=== PATIENT | female | born 1985 | race Caucasian/White ===

== ENCOUNTER 2019-02-15 10:58 | Emergency (ER) | payer SELFPAY ==
[2019-02-15] MEDS ORDERED: HYDROCODONE/APAP 7.5/325 MG TAB ONE (13:15)
[2019-02-15 13:57] LABS: Urine Specific Gravity 1.015 (1.005-1.030)
[2019-02-15 13:57] LABS: Urine Blood TRACE (NEG); Urine Glucose NEGATIVE (NEG); Urine Protein NEGATIVE (NEG); Urine Specific Gravity 1.015 (1.005-1.030)
--- NOTE | 2019-02-15 17:59 | ER ---
Nurse's Notes [facility] Name: Marjan Prescott Age: 33 yrs Sex: Female : 1985 Arrival Date: 02/15/2019 Time: 11:00 Bed 26 Private MD: Diagnosis: Sciatica Presentation: 02/15 11:38 Presenting complaint: Patient states: "I came in Tuesday because my back had been aj1 hurting. They said it was my sciatic nerve. Now the pain is in both of my legs and it goes all the way up to where my bra is." States that she picked up her cousin's 2 year old and turned wrong and she thinks that that could be what started the pain. Transition of care: patient was not received from another setting of care. Onset of symptoms was January 2019. Risk Assessment: Do you want to hurt yourself or someone else? Patient reports no desire to harm self or others. Initial Sepsis Screen: Does the patient meet any 2 criteria? No. Patient's initial sepsis screen is negative. Does the patient have a suspected source of infection? No. Patient's initial sepsis screen is negative. Care prior to arrival: None. 11:38 Method Of Arrival: Wheelchair aj1 11:38 Acuity: LICO 4 aj1 Triage Assessment: 11:40 General: Appears in no apparent distress. uncomfortable, Behavior is calm, cooperative, aj1 appropriate for age. Pain: Complains of pain in back, right leg and left leg Pain currently is 9 out of 10 on a pain scale. Neuro: Level of Consciousness is awake, alert, obeys commands. Cardiovascular: Patient's skin is warm and dry. Respiratory: Airway is patent Respiratory effort is even, unlabored, Respiratory pattern is regular, symmetrical. 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 - Ebola Screening: : Patient denies travel to an Ebola-affected area in the 21 days before illness onset. - Social history:: Smoking status: unknown. Screenin:39 Abuse screen: Denies threats or abuse. Denies injuries from another. Nutritional mg2 screening: No deficits noted. Tuberculosis screening: No symptoms or risk factors identified. Fall Risk Gait- Weak (10 pts.). Assessment: 13:38 General: Appears in no apparent distress. comfortable, Behavior is calm, cooperative. mg2 Pain: Complains of pain in left leg and right leg Pain radiates to right low back and left low back Pain currently is 8 out of 10 on a pain scale. Quality of pain is described as aching, Pain began gradually. Neuro: Level of Consciousness is awake, alert, obeys commands, Oriented to person, place, time, situation. Cardiovascular: Capillary refill < 3 seconds Patient's skin is warm and dry. Respiratory: Airway is patent Respiratory effort is even, unlabored, Respiratory pattern is regular, symmetrical. GI: No signs and/or symptoms were reported involving the gastrointestinal system. : No signs and/or symptoms were reported regarding the genitourinary system. EENT: No signs and/or symptoms were reported regarding the EENT system. Derm: Skin is intact, is healthy with good turgor, Skin is pink, warm \\T\\ dry. normal. Musculoskeletal: Reports pain in right low back and left low back and left leg and right leg and back. Vital Signs: 11:40 BP 97 / 77; Pulse 86; Resp 18; Temp 98.1; Pulse Ox 100% on R/A; Weight 56.7 kg (R); aj1 Height 5 ft. 7 in. (170.18 cm) (R); Pain 9/10; 13:40 BP 114 / 78; Pulse 80; Resp 18; Temp 98; Pulse Ox 100% on R/A; mg2 11:40 Body Mass Index 19.58 (56.70 kg, 170.18 cm) aj1 ED Course: 11:00 Patient arrived in ED. mr 11:40 Triage completed. aj1 11:40 Arm band placed on Patient placed in waiting room, Patient notified of wait time. aj1 12:43 Stephane Lebron, GUS is Primary Nurse. mg2 12:50 David Turpin PA is PHCP. cp 12:50 Harman Webster MD is Attending Physician. cp 13:10 Urine collected: clean catch specimen, clear. lt1 13:39 Patient has correct armband on for positive identification. mg2 13:39 No provider procedures requiring assistance completed. Patient did not have IV access mg2 during this emergency room visit. Administered Medications: 13:17 Drug: Hydrocodone-Acetaminophen (7.5 mg-325 mg) 2 tabs Route: PO; mg2 13:40 Follow up: Response: No adverse reaction; Medication administered at discharge. mg2 Outcome: 13:18 Discharge ordered by . cp 13:40 Discharged to home via wheelchair, with family. mg2 13:40 Condition: stable 13:40 Discharge instructions given to patient, Instructed on discharge instructions, follow up and referral plans. medication usage, Demonstrated understanding of instructions, follow-up care, medications, Prescriptions given X 2. 13:41 Patient left the ED. mg2 Signatures: Dalia Barnett, RN RN aj1 Ashley Rai mr David Turpin, MAYCO PA Stephane Wilson RN RN mg2 Gloria Melchor 1
--- NOTE | 2019-02-15 18:01 | EDPHYS ---
Physician Documentation [facility] Name: Marjan Prescott Age: 33 yrs Sex: Female : 1985 Arrival Date: 02/15/2019 Time: 11:00 Bed 26 Private MD: ED Physician Harman Webster HPI: 02/15 13:01 This 33 yrs old Female presents to ER via Wheelchair with complaints of Leg cp Pain, Back Pain. 13:01 The patient presents with pain that is acute. The symptoms are located in the low back. cp The pain radiates to the posterior aspect of left and right legs. 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 cp Associated signs and symptoms: Pertinent negatives: abdominal pain, constipation, dysuria, fever, hematuria, incontinence, numbness, urinary retention, weakness. Severity of symptoms: in the emergency department the symptoms are actually worse. The patient has been recently seen at the [facility] Emergency Department, this week, for similar complaints given RX for Flexeril and diclofenac . 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 - Ebola Screening: : Patient denies travel to an Ebola-affected area in the 21 days before illness onset. - Social history:: Smoking status: unknown. ROS: 13:10 Constitutional: Negative for body aches, chills, fever, poor PO intake. cp 13:10 Eyes: Negative for injury, pain, redness, and discharge. cp 13:10 ENT: Negative for drainage from ear(s), ear pain, sore throat, difficulty swallowing, difficulty handling secretions. 13:10 Cardiovascular: Negative for chest pain, palpitations. 13:10 Respiratory: Negative for cough, shortness of breath, wheezing. 13:10 Abdomen/GI: Negative for abdominal pain, nausea, vomiting, and diarrhea, constipation, black/tarry stool, rectal bleeding, bowel incontinence. 13:10 Back: Positive for pain at rest, pain with movement, of the left low back and right low back. 13:10 : Negative for urinary symptoms, hematuria, difficulty urinating, bladder incontinence. 13:10 Skin: Negative for cellulitis, rash. 13:10 Neuro: Negative for altered mental status, headache, weakness. 13:10 All other systems are negative. Exam: 13:15 Constitutional: The patient appears in no acute distress, alert, awake, non-toxic, well cp developed, well nourished, uncomfortable. 13:15 Head/Face: Normocephalic, atraumatic. cp 13:15 Eyes: Periorbital structures: appear normal, Conjunctiva: normal, no exudate, no injection, Sclera: no appreciated abnormality, Lids and lashes: appear normal, bilaterally. 13:15 ENT: External ear(s): Nose: is normal, Mouth: Lips: moist, Oral mucosa: pink and intact, moist, Posterior pharynx: is normal, airway is patent, no erythema, no exudate. 13:15 Chest/axilla: Inspection: normal, Palpation: is normal, no crepitus, no tenderness. 13:15 Cardiovascular: Rate: normal, Rhythm: regular, Edema: is not appreciated, JVD: is not appreciated. 13:15 Respiratory: the patient does not display signs of respiratory distress, Respirations: normal, no use of accessory muscles, no retractions, no splinting, no tachypnea, labored breathing, is not present, Breath sounds: are clear throughout, no decreased breath sounds, no stridor, no wheezing. 13:15 Abdomen/GI: Inspection: abdomen appears normal, Bowel sounds: active, all quadrants, Palpation: abdomen is soft and non-tender, in all quadrants, rebound tenderness, is not appreciated, voluntary guarding, is not appreciated, involuntary guarding, is not appreciated. 13:15 Back: pain, that is moderate, ROM is painful, with all movement. 13:15 Neuro: Motor: moves all fours, strength is normal, Sensation: is normal, Gait: is steady, Deep tendon reflexes are 2+ (normal) in the right patellar, right Achilles, left patellar and left Achilles, Babinski testing is normal. Vital Signs: 11:40 BP 97 / 77; Pulse 86; Resp 18; Temp 98.1; Pulse Ox 100% on R/A; Weight 56.7 kg (R); aj1 Height 5 ft. 7 in. (170.18 cm) (R); Pain 9/10; 13:40 BP 114 / 78; Pulse 80; Resp 18; Temp 98; Pulse Ox 100% on R/A; mg2 11:40 Body Mass Index 19.58 (56.70 kg, 170.18 cm) aj1 MDM: 12:54 Patient medically screened. cp 13:00 Differential diagnosis: strain, sciatica, Herniated disc UTI, cauda equina, spinal cp stenosis. 02/15 12:55 Order name: Urine Dipstick-Ancillary (obtain specimen); Complete Time: 13:11 cp 02/15 12:55 Order name: Urine Test (obtain specimen); Complete Time: 13:11 cp Administered Medications: 13:17 Drug: Hydrocodone-Acetaminophen (7.5 mg-325 mg) 2 tabs Route: PO; mg2 13:40 Follow up: Response: No adverse reaction; Medication administered at discharge. mg2 Disposition: 14:56 Co-signature as Attending Physician, Harman Webster MD I agree with the assessment and kdr plan of care. Disposition: 02/15/19 13:18 Discharged to Home. Impression: Sciatica. - Condition is Stable. - Discharge Instructions: Sciatica. - Prescriptions for Tramadol 50 mg Oral Tablet - take 1 tablet by ORAL route every 8 hours as needed; 20 tablet. Medrol ([place]) 4 mg Oral Tablets, Dose Pack - take 1 tablet by ORAL route as directed - follow package instructions; 1 packet. - Medication Reconciliation Form, Thank You Letter, Antibiotic Education, Prescription Opioid Use form. - Follow up: Private Physician; When: 2 - 3 days; Reason: Recheck today's complaints. - Problem is an ongoing problem. - Symptoms have improved. - Notes: stop over the counter ibuprofen and diclofenac while taking medrol dose hayden Signatures: Dalia Barnett RN RN aj1 Harman Webster MD MD kdr David Turpin PA PA cp Stephane Lebron RN RN mg2 Corrections: (The following items were deleted from the chart) 13:41 13:18 02/15/2019 13:18 Discharged to Home. Impression: Sciatica. Condition is Stable. mg2 Forms are Medication Reconciliation Form, Thank You Letter, Antibiotic Education, Prescription Opioid Use. Follow up: Private Physician; When: 2 - 3 days; Reason: Recheck today's complaints. Problem is an ongoing problem. Symptoms have improved. cp
== END 2019-02-15 13:41 | disposition home or self-care (01) ==
LOC: ER 10:58
DX: M54.30 Sciatica, unspecified side (principal)
CPT/HCPCS: 81003; 81025; 99283